=== PATIENT | female | born 1995 | race Caucasian/White ===

== ENCOUNTER 2023-07-25 11:45 | Emergency (ER) | payer OTHER, SELFPAY ==
[2023-07-25 11:49] VITALS: BP 117/80; PULSE 102; RESP 16; TEMP 36.7; O2SAT 100; BMI 22.9
--- NOTE | 2023-07-25 12:35 | CT_ITS ---
WS: [id number] CT HEAD NONCONTRAST HISTORY: zheng TECHNIQUE: Contiguous axial imaging performed through the brain in 3.0 mm imaging. Bone and soft tiss ue windows. Sagittal and coronal reformats reviewed. All CT scans at [facility] use at least one of these dose optimization techniques: automated exposure control; mA and/or kV adjustment per pa tient size (includes targeted exams where dose is matched to clinical indication); or iterative recon struction. DLP: 1078.19 mGy.cm COMPARISON: None available. No acute intracranial hemorrhage, midline shift or mass effect. No atrophy or prior infarcts or herniation. Ventricles: Normal size with no hydrocephalus. Paranasal sinuses: As visualized are clear. Mastoid air cells: Well pneumatized. Calvarium and scalp: Skull is intact with no soft tissue edema or swelling. IMPRESSION: Negative head CT.
--- NOTE | 2023-07-25 12:52 | W.ED.HA ---
HPI - Headache General: Chief Complaint: Headache Stated Complaint: headache, confusion Time Seen by Provider: 07/25/23 12:35 Source: patient Mode of arrival: ambulatory Limitations: no limitations History of Present Illness: 28-year-old female she states she been having migraine headaches for little over a year states she is concerned because she had a headache yesterday that was different states it felt like her previous migraines but she is talked her felt like she is having a hard time comprehending him. States her headache is since resolved and she feels completely back to normal today just states that she went to be checked since she has not had a headache like that before. Associated symptoms: Deny chest pain, fever(s), nausea, rash or vomiting Review of Systems Const: Denies: fever(s), chills, body aches or change in appetite ENMT: Denies: throat pain or dental pain Card: Denies: chest pain Resp: Denies: dyspnea GI: Denies: abdominal pain, nausea, vomiting or diarrhea Musc: Denies: neck pain or back pain Skin/Breast: Denies: rash Neuro: Reports: headache(s) [facility] ED Female Reproductive History: Date of last menstrual period: 07/04/23 Physical Exam Const: COMMON NORMALS: no acute distress, patient oriented x3 and healthy appearing HENMT: COMMON NORMALS: normocephalic and atraumatic HEAD & SCALP: normocephalic and atraumatic Eye: COMMON NORMALS: Equal, round and reactive pupils present and EOMs intact bilaterally PUPIL: Yes Equal, round and reactive pupils present Neck/C-Spine: COMMON NORMALS: full ROM and supple Chest: COMMONS NORMALS: normal inspection of the chest Resp: COMMON NORMALS: normal respiratory effort Cardio: COMMON NORMALS: regular rate, regular rhythm and No murmurs present (Cardio) RATE: regular rate RHYTHM: regular rhythm GI: COMMON NORMALS: Normal to inspection, nondistended, normoactive bowel sounds present, Soft to palpation, non-tender and no masses PALPATION: Yes Soft to palpation Extremity: COMMON NORMALS: normal to inspection and full ROM Neuro: COMMON NORMALS: patient oriented x3, moves all extremities and no focal motor deficits Psych: COMMON NORMALS: mental status grossly normal, Normal thought process present and cooperative THOUGHT PROCESS: Normal thought process present Skin: COMMON NORMALS: no rashes or lesions noted and no wounds GENERAL SKIN EXAM: no rashes or lesions noted Course Vital Signs: Vital signs: Vital Signs Temperature 98.0 F 07/25/23 11:49 Pulse Rate 102 H 07/25/23 11:49 Respiratory Rate 16 07/25/23 11:49 Blood Pressure 117/80 07/25/23 11:49 Pulse Oximetry 100 07/25/23 11:49 Oxygen Delivery Me thod Room Air 07/25/23 11:49 MDM - Headache Medical Decision Making Patient presents here with headache sounds like with an aura head CT here is normal no signs of subarachnoid hemorrhage or meningitis she is headache free here she is to follow-up with neurology and return if worsening she understands agrees to plan. Medical Records I reviewed the patient's medical records. All radiology interpretation(s) finalized by discharge Discharge Plan Discharge Patient Disposition: Home Clinical Impression: Headache Qualifiers: Headache type: unspecified Condition: Stable Prescriptions: No Action [place] Capsules 1 cap PO .ONE TIME DOSE Discharge Orders: Discharge ED (Routine); Ordered 07/25/23 Ordered By: Allison Steinberg Referrals: Michelle Padilla MD [Physician] - 1-3 days Steve Arango MD [Primary Care Provider] - Discharge Diet: Advance as tolerated Discharge Activity: Resume usual activity Patient Instructions: General Headache (ED) Coding Level of Care Code ED Digital Media Buyer for Stefany Mann
[2023-07-25 13:36] VITALS: RESP 15; O2SAT 100
--- NOTE | 2023-07-26 12:42 | DCPLANNER ---
Message was sent to neurology on 07/26/23 at 1242. Clinic will contact patient.
== END 2023-07-25 13:37 | disposition home or self-care (01) ==
PROVIDERS: Emergency Provider Emergency Medicine; PCP Family Medicine
DX: R51.9 Headache, unspecified (principal)
CPT/HCPCS: 70450; 99284

== ENCOUNTER 2023-08-13 22:30 | Emergency (ER) | payer SELFPAY ==
[2023-08-13 22:31] VITALS: BP 145/70; PULSE 132; RESP 16; TEMP 36.6; O2SAT 100; BMI 23.3
--- NOTE | 2023-08-13 22:41 | ECG_ITS ---
[facility] Test Date: 2023-08-13 Pat Name: Barb Abebe Department: Room: Gender: Female Stick Roller: : 1995 Requested By: Ravin Garcia Order Number: [id number] Egan MD: Mor Gomez M.D. Measurements Intervals [place] Rate: 114 P: 0 [place]: 0 QRS: 52 QRSD: 76 T: 60 QT: 327 QTc: 451 Interpretive Statements SINUS TACHYCARDIA No previous ECG available for comparison Electronically Signed On 08-13-2023 23:08:04 MANAGER ASSET by Mor Gomez M.D. [id number]
--- NOTE | 2023-08-13 23:00 | XRR_ITS ---
PROCEDURE INFORMATION: Exam: XR Chest Exam date and time: 08/13/2023 11:13 PM Age: 28 years old Clinical indication: Tachypnea; Patient HX: Patient says a couple weeks ago her kids had the flu; Additional info: Tachycardia TECHNIQUE: Imaging protocol: Radiologic exam of the chest. Views: 1 view. COMPARISON: CR XR abdomen min 2V [id number] 05/18/2022 10:26 FINDINGS: Lungs: Unremarkable. No consolidation. Pleural spaces: Unremarkable. No pleural effusion. No pneumothorax. Heart/Mediastinum: Unremarkable. No cardiomegaly. Bones/joints: Unremarkable. XR/XR chest 1V [id number] IMPRESSION: No acute findings.
--- NOTE | 2023-08-13 23:01 | W.ED.ARRPALP ---
HPI - Arrhythmia/Palpitations General: Chief Complaint: Arrhythmia/Palpitations Stated Complaint: high hr Time Seen by Provider: 08/13/23 22:39 Source: patient Mode of arrival: ambulatory Limitations: no limitations History of Present Illness: Patient presents emergency department today for evaluation and treatment of palpitations and high heart rate. Patient reports that starting about 4 days ago she started to notice fluttering in her chest. She has a smart watch which is able to monitor her heart rate and states she has been having resting heart rates around 100-110. These seem to be somewhat episodic and can happen at any time. She had an episode yesterday while at [employer] and heart rate was in the 110. Her has a history of cardiac arrhythmia and she admits she took one of his metoprolol. Patient reports going to bed tonight but being woken up approximately 45 minutes ago feeling shaky and feeling palpitations. Her watch indicated her heart rate was in the 130s. Patient had a couple of headaches last week. She states she has a history of migraines but never with aura. She had 2 migraines with aura last week and actually was seen here in the emergency department for evaluation of these. There were no acute findings in her evaluation at that time. Patient has no history of cardiac disease. She has no history of anemia or thyroid issues however, she reports her mother has thyroid issues. Last time her thyroid was checked was many years ago. Patient states she only drinks 1 caffeinated beverage a day. She states she herself has not noticed any cough, congestion, sore throat, or fevers though her 2 children were very ill last week-thought to have been the flu. Review of Systems General: Reports: 10 or more systems reviewed and unremarkable except in HPI and below Physical Exam Const: COMMON NORMALS: no acute distress (A little anxious but very pleasant), patient oriented x3 and alert HENMT: COMMON NORMALS: normocephalic, atraumatic and hearing grossly normal bilaterally HEAD & SCALP: normocephalic and atraumatic Eye: COMMON NORMALS: Equal, round and reactive pupils present, EOMs intact bilaterally and conjunctivae normal CONJUNCTIVA: Yes conjunctivae normal PUPIL: Yes Equal, round and reactive pupils present Neck/C-Spine: COMMON NORMALS: full ROM, no meningeal signs and no JVD Lymph: LYMPHATIC: no lymphadenopathy noted Chest: CHEST: Yes Symmetrical chest wall rise and Yes crepitus Resp: COMMON NORMALS: normal respiratory effort, No retractions and No use of accessory muscles OTHER: No wheezing, rhonchi Cardio: COMMON NORMALS: no JVD and regular rhythm RHYTHM: regular rhythm OTHER: Patient's heart rate correlates with radial pulse. She is tachycardic. GI: OTHER: Abdomen soft, nontender. Back/Pelvis: OTHER: Full flexion extension capabilities of the thoracic and lumbar spine without difficulty. Extremity: OTHER: Patient is independently ambulatory and weightbearing here in the emergency department. No signs of pedal edema. Neuro: COMMON NORMALS: patient oriented x3 SENSORIUM/ORIENTATION: Yes alert MENINGEAL SIGNS: Yes no meningeal signs CRANIAL NERVES: Yes CN normal except as noted SPEECH: speech normal GAIT: Yes Normal gait present Psych: COMMON NORMALS: mental status grossly normal, Normal thought process present, cooperative and normal affect THOUGHT PROCESS: Normal thought process present Skin: COMMON NORMALS: no rashes or lesions noted and turgor normal GENERAL SKIN EXAM: no rashes or lesions noted and turgor normal Course Vital Signs: Vital signs: Vital Signs Temperature 97.9 F 08/13/23 22:31 Pulse Rate 87 08/14/23 01:57 Respiratory Rate 21 H 08/14/23 01:57 Blood Pressure 104/63 08/14/23 01:57 Pulse Oximetry 98 08/14/23 01:57 Oxygen Delivery Me thod Room Air 08/13/23 22:31 MDM - Arrhythmia/Palpitations Medical Decision Making Patient presents emergency department today after being woken up from sleep with shakiness, palpitations, and smart watch heart rate of 130s. Patient checked in with a heart rate of 132. She has fluctuated from heart rate in the 90s to the 130s off-and-on during her evaluation. Blood pressure has remained stable. She is afebrile. Patient's initial lab work is generally unremarkable. EKG was originally concerning for a computer reading of A-fib with RVR however, per my interpretation, Dr. Garcia, and cardiology, there are P waves before each QRS and patient appears to be in a sinus tachycardia. Patient shows no signs of anemia. She shows no significant electrolyte imbalance or dehydration. Patient's thyroid is within normal limits. Chest x-ray is clear. Initial baseline troponin is negative however, as patient came in immediately after developing her symptoms tonight, we did check a 2-hour troponin to look for any signs of developing cardiac involvement. Transfer of care to Dr. Garcia at 0100 to await 2-hour troponin and determine treatment course either involving Holter monitor or acute anxiety/acute tachycardia treatment. Differential Diagnosis Likely palpitations, anxiety and sinus tachycardia; Unlikely artial fibrillation, artial flutter, ventricular premature beats, supraventricular tachycardia, ventricular tachycardia or WPW Lab Data 08/13/23 22:55 08/13/23 22:55 Radiology Impressions Chest X-Ray 08/13/23 23:00 IMPRESSION: No acute findings. Laboratory Results WBC 5.70 10^3/uL (3.29-11.43) 08/13/23 22:55 RBC 4.59 10^6/uL (3.85-5.65) 08/13/23 22:55 Hgb 13.60 g/dL (11.27-16.99) 08/13/23 22:55 Hct 40.0 % (36-47) 08/13/23 22:55 MCV 87.1 fl (85-98) 08/13/23 22:55 MCH 29.6 pg (27-33) 08/13/23 22:55 MCHC 34.0 g/dL (30-55) 08/13/23 22:55 RDW 12.8 % (12.1-15.1) 08/13/23 22:55 Plt Count 217 10^3/cmm (157-399) 08/13/23 22:55 MPV 10.9 fL (7.4-10.4) H 08/13/23 22:55 Neut % (Auto) 49.5 % 08/13/23 22:55 Lymph % (Auto) 39.6 % 08/13/23 22:55 [place] % (Auto) 8.8 % 08/13/23 22:55 Eos % (Auto) 1.2 % 08/13/23 22:55 Baso % (Auto) 0.7 % 08/13/23 22:55 Neut # (Auto) 2.82 10^3/uL (1.8-7.7) 08/13/23 22:55 Lymph # (Auto) 2.3 10^3/uL (0.8-4.8) 08/13/23 22:55 [place] # (Auto) 0.5 10^3/uL (0.2-0.9) 08/13/23 22:55 Eos # (Auto) 0.1 10^3/uL (0.0-0.8) 08/13/23 22:55 Baso # (Auto) 0.0 10^3/uL (0.0-0.1) 08/13/23 22:55 Nucleated RBC % (auto) 0 % 08/13/23 22:55 Nucleated RBCs # 0.0 /100WBC 08/13/23 22:55 Sodium 138 mmol/L (136-145) 08/13/23 22:55 Potassium 3.3 mmol/L (3.5-5.1) L 08/13/23 22:55 Chloride 100 mmol/L (98-107) 08/13/23 22:55 Carbon Dioxide 22 mmol/L (22-29) 08/13/23 22:55 Anion Gap 19.3 (5-19) H 08/13/23 22:55 BUN 12 mg/dL (6-20) 08/13/23 22:55 Creatinine 0.8 mg/dL (0.5-0.9) 08/13/23 22:55 GFR Calculation 86.0 mL/min (90-130) L 08/13/23 22:55 Glucose 117 mg/dL (65-115) H 08/13/23 22:55 Calculated Osmolality 287 mOsm/kg (285-295) 08/13/23 22:55 Calcium 10.1 mg/dL (8.5-10.5) 08/13/23 22:55 Total Bilirubin 0.9 mg/dL (0.15-1.2) 08/13/23 22:55 AST 14 U/L (0-32) 08/13/23 22:55 ALT 7 U/L (0-33) 08/13/23 22:55 Alkaline Phosphatase 52 U/L (35-105) 08/13/23 22:55 Troponin T Baseline < 6 ng/L (0-10) 08/13/23 22:55 Troponin T 120 Minute 6.00 ng/L (0-10) 08/14/23 00:53 Delta Troponin T 0.89930 ABS# (0-10) 08/14/23 00:53 Total Protein 8.0 g/dL (6.6-8.7) 08/13/23 22:55 Albumin 4.9 g/dL (3.5-5.2) 08/13/23 22:55 Globulin 3.1 g/dL (1.3-4.6) 08/13/23 22:55 TSH 2.79 uIU/mL (0.27-4.20) 08/13/23 22:55 HCG, Qual Negative (Negative) 08/13/23 23:20 Urine Color Light yellow (Yellow) 08/13/23 23:20 Urine Appearance Clear (CLEAR) 08/13/23 23:20 Urine pH 6 (5-7) 08/13/23 23:20 Ur Specific [place] 1.010 (1.005-1.030) 08/13/23 23:20 Urine Protein Neg (Negative) 08/13/23 23:20 Urine Glucose (UA) Norm (Normal) 08/13/23 23:20 Urine Ketones 2+ (Negative) H 08/13/23 23:20 Urine Blood Neg (Negative) 08/13/23 23:20 Urine Nitrate Negative (Negative) 08/13/23 23:20 Urine Bilirubin Neg (Negative) 08/13/23 23:20 Urine Urobilinogen Neg mg/dL (Negative) 08/13/23 23:20 Ur Leukocyte Esterase Negative (Negative) 08/13/23 23:20 Urine Opiates Screen Negative ng/mL (Negative) 08/13/23 23:20 Ur Barbiturates Screen Negative ng/mL (Negative) 08/13/23 23:20 Ur Phencyclidine Scrn Negative ng/mL (Negative) 08/13/23 23:20 Ur Amphetamines Screen Negative ng/mL (Negative) 08/13/23 23:20 U Benzodiazepines Scrn Negative ng/mL (Negative) 08/13/23 23:20 Urine Cocaine Screen Negative ng/mL (Negative) 08/13/23 23:20 U Marijuana (THC) Screen Negative ng/mL (Negative) 08/13/23 23:20 Influenza Type A Ag negative (Negative) 08/13/23 23:20 Influenza Type B Ag negative (Negative) 08/13/23 23:20 All radiology interpretation(s) finalized by discharge Discharge Plan Discharge Patient Disposition: Home Clinical Impression: Palpitations Condition: Stable Prescriptions: No Action [place] Capsules 1 cap PO .ONE TIME DOSE Discharge Orders: Discharge ED (Routine); Ordered 08/14/23 Ordered By: Ravin Garcia Referrals: Fish Bedolla MD [Primary Care Provider] - 1 week Patient Instructions: Heart Palpitations (DC) Activity Restrictions/Additional Instructions: Workup in ER was essentially benign except for very mild low potassium. He will be referred out for Holter monitor to wear for several days while he record your heart rate. These results should go to your family practice physician. Case management will call you to arrange the Holter monitor. Otherwise please follow-up with your family practice physician within next 7 to 10 days for further evaluation testing. Coding Level of Care Code ED Business Planning Analyst for Stefany Mann
[2023-08-13 23:02] VITALS: BP 96/80; PULSE 90; RESP 17; O2SAT 100
[2023-08-13 23:02] LABS: Basophils % 0.7 %; Eosinophils # 0.1 10^3/uL (0.0-0.8); Eosinophils % 1.2 %; Lymphocytes # 2.3 10^3/uL (0.8-4.8); Lymphocytes % 39.6 %; Mean Corpuscular Hemoglobin 29.6 pg (27-33); Mean Corpuscular Volume 87.1 fl (85-98); Mean Platelet Volume 10.9 fL (7.4-10.4); Monocytes # 0.5 10^3/uL (0.2-0.9); Monocytes % 8.8 %; Neutrophils # 2.82 10^3/uL (1.8-7.7); Neutrophils % 49.5 %; Nucleated Red Blood Cells % 0 %; Platelet Count 217 10^3/cmm (157-399); Red Blood Count 4.59 10^6/uL (3.85-5.65); Red Cell Distribution Width 12.8 % (12.1-15.1)
[2023-08-13 23:22] LABS: Alanine Aminotransferase 7 U/L (0-33); Albumin Level 4.9 g/dL (3.5-5.2); Alkaline Phosphatase 52 U/L (35-105); Anion Gap 19.3 (5-19); Aspartate Amino Transferase 14 U/L (0-32); Blood Urea Nitrogen 12 mg/dL (6-20); Calcium 10.1 mg/dL (8.5-10.5); Carbon Dioxide 22 mmol/L (22-29); Chloride 100 mmol/L (98-107); Globulin 3.1 g/dL (1.3-4.6); Glucose 117 mg/dL (65-115); Osmolality Calculated 287 mOsm/kg (285-295); Potassium 3.3 mmol/L (3.5-5.1); Sodium 138 mmol/L (136-145); Total Bilirubin 0.9 mg/dL (0.15-1.2)
[2023-08-13 23:25] LABS: Add Urine Microscopic? NO; Charge for UA Resulting for Rev
[2023-08-13 23:27] LABS: Thyroid Stimulating Hormone 2.79 uIU/mL (0.27-4.20)
[2023-08-13 23:27] LABS: Bilirubin Urine Neg (Negative); Blood Urine Neg (Negative); Glucose Urine UA Norm (Normal); HCG Qualitative Urine. Negative (Negative); Ketones Urine 2+ (Negative); Leukocyte Esterase Urine Negative (Negative); Nitrate Urine Negative (Negative); Protein Urine Neg (Negative); Urine Appearance Clear (CLEAR); Urine Color Light yellow (Yellow); Urobilinogen Urine Neg (Negative); pH Urine 6 (5-7)
[2023-08-13 23:33] VITALS: BP 110/77; PULSE 100; RESP 20; O2SAT 97
[2023-08-13 23:35] LABS: Amphetamines Screen Urine Negative (Negative); Barbiturates Screen Urine Negative (Negative); Benzodiazepines Screen Urine Negative (Negative); Cocaine Screen Urine Negative (Negative); Opiate Screen Urine Negative (Negative); PCP Screen Urine Negative (Negative); THC Screen Urine Negative (Negative)
[2023-08-13 23:37] LABS: Influenza A by IFA negative (Negative); Influenza B by IFA negative (Negative)
[2023-08-13 23:39] VITALS: BP 110/77; PULSE 94; RESP 18; O2SAT 95
[2023-08-13 23:40] LABS: Troponin(5th) Baseline < 6 ng/L (0-10)
[2023-08-14] VITALS: BP 114/70; PULSE 95; RESP 18; O2SAT 98
[2023-08-14 00:30] VITALS: BP 104/69; PULSE 86; RESP 22; O2SAT 98
--- NOTE | 2023-08-14 01:01 | ECG_ITS ---
[facility] Test Date: 2023-08-14 Pat Name: Barb Abebe Department: Room: Gender: Female Wildlife Refuge Manager: : 1995 Requested By: Ines Mcpherson Order Number: [id number] Jignesh MD: Mor Gmoez M.D. Measurements Intervals [place] Rate: 85 P: 68 ND: 140 QRS: 58 QRSD: 84 T: 59 QT: 344 QTc: 410 Interpretive Statements SINUS RHYTHM WITH MARKED SINUS ARRHYTHMIA LOW QRS VOLTAGE IN PRECORDIAL LEADS [QRS DEFLECTION < 1.0 mV IN CHEST LEADS] Compared to ECG 08/13/2023 22:41:49 Low QRS voltage now present Sinus tachycardia no longer present Electronically Signed On 08-14-2023 9:57:27 CORPORATION PILOT by Mor Gomez M.D. [email or web address]
[2023-08-14 01:12] LABS: Troponin 5 2HR Delta 0.00001 ABS# (0-10)
[2023-08-14 01:21] VITALS: BP 99/67; PULSE 76; RESP 21; O2SAT 98
[2023-08-14 01:57] VITALS: BP 104/63; PULSE 87; RESP 21; O2SAT 98
[2023-08-14 02:30] VITALS: BP 104/64; PULSE 96; RESP 14; O2SAT 96
--- NOTE | 2023-08-15 08:40 | DCPLANNER ---
Message sent to Cardiology for holter monitor.
== END 2023-08-14 02:32 | disposition home or self-care (01) ==
PROVIDERS: Emergency Provider Physician Assistant; PCP Family Medicine
DX: R00.2 Palpitations (principal)
CPT/HCPCS: 71045; 80053; 80306; 81003; 81025; 84443; 84484; 85025; 87804; 93005; 99285